=== PATIENT | female | born 1955 | race African-American/Black ===

== ENCOUNTER 2020-04-01 12:25 | Inpatient (IN) | payer MEDICAID, OTHER ==
[~2020-04-01] VITALS: Ht 175.3 cm; Wt 86.9 kg
[2020-04-01 14:12] LABS: White Blood Cell 6.4 10^3/uL (4.4-10.8)
[2020-04-01 14:14] LABS: Hematocrit 46.3 % (36.0-46.0); Mean Corpuscular Hemoglobin 24.3 pg (28.0-32.0); Mean Corpuscular Hgb Conc. 30.2 g/dL (32.0-36.0); Mean Corpuscular Volume 80.6 fL (80.0-100.0); Platelet Count (auto) 165 10^3/uL (140-450); Red Blood Cells 5.75 10^6/uL (4.0-5.20)
[2020-04-01 14:15] LABS: Red Cell Distribution Width 23.5 % (11.8-14.3)
[2020-04-01 14:16] LABS: Band Neutrophils % (manual) 0; Basophils % (manual) 0 (0.0-2.0); Blast Cells 0; Metamyelocytes % 0; Myelocytes % 0; Promyelocytes % 0; Reactive Lymphocytes 0
[2020-04-01 14:28] LABS: Eosinophils % (manual) 1 (0-7); Lymphocytes % (manual) 10 (10.0-50.0); Monocytes % (manual) 14 (0-12)
[2020-04-01 14:31] LABS: Albumin 2.6 g/dL (3.4-5.0); Calcium 8.4 mg/dL (8.5-10.1); Magnesium 2.3 mg/dL (1.6-2.6)
[2020-04-01 14:34] LABS: Lactic Acid w/Reflex 2.8 mmol/L (0.4-2.0)
[2020-04-01 14:38] LABS: Bilirubin, Total 5.2 mg/dL (0.2-1.0); Total Protein 6.8 g/dL (6.4-8.2)
[2020-04-01] MEDS ORDERED: cefTRIAXone 1GM/50ML D5W 50 ML IV ONE (14:45)
[2020-04-01 15:17] LABS: Potassium 2.8 mmol/L (3.5-5.1)
[2020-04-01] MEDS ORDERED: FUROSEMIDE 40 MG/4 ML VIAL IV ONE (16:15)
[2020-04-01] MEDS ORDERED: POTASSIUM EFFERVESENT TAB 25 MEQ PO ONE (17:15)
[2020-04-01] MEDS ORDERED: POTASSIUM CHL 20MEQ/100ML 100 ML IV SCH ×2 (17:45→18:30)
[2020-04-01] MEDS ORDERED: MORPHINE SULF INJ 2 MG/ML SYRINGE 1ML IV PRN (17:45)
[2020-04-01] MEDS ORDERED: NITROGLYCERIN 0.4 MG SL TAB SL PRN (17:45)
[2020-04-01] MEDS ORDERED: POTASSIUM CHLORIDE IV ONE (18:30)
[2020-04-01] MEDS ORDERED: LIDOCAINE 1% IV ONE (18:30)
[2020-04-01] MEDS ORDERED: SODIUM CHL 0.9% IV ONE (18:30)
[2020-04-01] MEDS ORDERED: ACETAMINOPHEN 500 MG TAB PO PRN (19:00)
[2020-04-01] MEDS ORDERED: TEMAZEPAM 15 MG CAP PO PRN (19:00)
[2020-04-01] MEDS ORDERED: ALBUTEROL SULF 2.5 MG/0.5ML(0.5%) NEB SOLN NEB PRN (19:00)
[2020-04-01] MEDS ORDERED: ASPirin 81 mg TAB PO ONE (19:00)
[2020-04-01] MEDS ORDERED: traMADol HCL 50 MG TAB PO PRN (19:00)
[2020-04-01] MEDS ORDERED: PROMETHAZINE HCL 25 MG/ML 1ML IV PRN (19:00)
[2020-04-01] MEDS: levoFLOXacin 500MG 100 ML IV SCH (19:38)
[2020-04-01] MEDS: ATORVASTATIN 20 MG TAB PO SCH (22:00)
[2020-04-01] MEDS: CARVEDILOL 3.125 MG TAB PO SCH (22:00)
[2020-04-01] MEDS: SODIUM CHLOR 0.9% PF (SALINE LOCK) 10ML VIAL/SYR IV SCH (22:00)
[2020-04-01 22:10] VITALS: BP 141/86
[2020-04-01] MEDS: ALBUTEROL SULF 2.5 MG/0.5ML(0.5%) NEB SOLN NEB SCH (22:33)
[2020-04-01] MEDS: IPRATROPIUM BROM 0.5 MG/2.5ML INH SOL NEB SCH (22:34)
[2020-04-01 22:43] VITALS: BP 141/86
[2020-04-01] MEDS ORDERED: FURO40TA4 PO (23:20)
[2020-04-01] MEDS ORDERED: GLIP5TAB12 PO (23:20)
[2020-04-01] MEDS ORDERED: ATOR20TA PO (23:20)
[2020-04-01] MEDS ORDERED: LISI-275 PO (23:20)
[2020-04-01] MEDS ORDERED: METO-158 PO (23:20)
[2020-04-01 23:58] LABS: Urine Bacteria FEW /hpf (None Seen); Urine Blood TRACE /uL (Negative); Urine Hyaline Cast FEW /lpf (0 - 2); Urine Specific Gravity 1.007 (1.001-1.035); Urine WBC <1 /hpf (0 - 5)
[2020-04-02] VITALS (8 sets, daily range): BP systolic 103–141; BP diastolic 56–86
[2020-04-02 00:05] LABS: Alcohol, Urine < 3.0 mg/dL (0-10); Amphetamine Screen, Urine NEGATIVE (NEGATIVE); Barbiturate Scree,Urine NEGATIVE (NEGATIVE); Benzodiazephine Screen, Urine NEGATIVE (NEGATIVE); Cannabinoid Screen, Urine NEGATIVE (NEGATIVE); Cocaine Screen, Urine NEGATIVE (NEGATIVE); Opiate Scree,Urine NEGATIVE (NEGATIVE); Phencyclidine Screen, Urine NEGATIVE (NEGATIVE)
[2020-04-02] MEDS ORDERED: DEXTROSE (50%) 50ML SYRG IV PRN (02:20)
[2020-04-02] MEDS: InsuLIN REG 1unit/0.01ml Soln (100units/ml) SC SCH ×5 (02:20→23:50)
[2020-04-02] MEDS: ACCU-CHEK COMFORT CURVE STRIP VI SCH ×5 (02:26→23:52)
[2020-04-02] MEDS: SODIUM CHLOR 0.9% PF (SALINE LOCK) 10ML VIAL/SYR IV SCH ×3 (05:17→21:14)
[2020-04-02 05:55] LABS: Eosinophils # (auto) 0 10 ^3/uL (0-0.8); Mean Corpuscular Hemoglobin 24.5 pg (28.0-32.0); Monocytes # (auto) 0.4 10 ^3/uL (0-1.3); Red Blood Cells 5.74 10^6/uL (4.0-5.20)
[2020-04-02 05:58] LABS: Basophils # (auto) 0.1 10 ^3/uL (0-0.2); Basophils % (auto) 1.1 % (0.0-2.0); Eosinophils % (auto) 0.1 % (0.0-7.0); Lymphocytes # (auto) 0.8 10 ^3/uL (0.4-5.4); Lymphocytes % (auto) 10.6 % (10.0-50.0); Mean Corpuscular Hgb Conc. 29.9 g/dL (32.0-36.0); Mean Corpuscular Volume 81.8 fL (80.0-100.0); Monocytes % (auto) 5.5 % (0.0-12.0); Neutrophils # (auto) 6.4 10 ^3/uL (1.6-8.6); Neutrophils % (auto) 82.7 % (37.0-80.0); Platelet Count (auto) 143 10^3/uL (140-450); Red Cell Distribution Width 23.8 % (11.8-14.3); White Blood Cell 7.7 10^3/uL (4.4-10.8)
[2020-04-02 06:26] LABS: Potassium 3.1 mmol/L (3.5-5.1)
[2020-04-02 06:40] LABS: Albumin 2.4 g/dL (3.4-5.0); BUN/Creatinine Ratio 29.4; Bilirubin, Total 4.7 mg/dL (0.2-1.0); Calcium 8.4 mg/dL (8.5-10.1); Total Protein 6.4 g/dL (6.4-8.2)
[2020-04-02] MEDS: IPRATROPIUM BROM 0.5 MG/2.5ML INH SOL NEB SCH ×3 (06:49→19:46)
[2020-04-02] MEDS: ALBUTEROL SULF 2.5 MG/0.5ML(0.5%) NEB SOLN NEB SCH ×3 (06:49→19:46)
[2020-04-02 06:51] LABS: Nucleated Red Blood Cells % 7.7 %
[2020-04-02] MEDS ORDERED: ASPirin 81 mg TAB PO SCH (10:00)
[2020-04-02] MEDS ORDERED: ENOXAPARIN SOD 40 MG/0.4 ML SYRINGE SC SCH (10:00)
[2020-04-02] MEDS ORDERED: ENALAPRIL MALEATE 2.5 MG TAB PO SCH (10:00)
[2020-04-02] MEDS ORDERED: POTASSIUM CHL 20 Meq TABLET PO SCH (10:00)
[2020-04-02] MEDS ORDERED: NITROGLYCERIN 0.2MG/HR TOPICAL PATCH TD SCH (10:00)
[2020-04-02] MEDS: FUROSEMIDE 40 MG/4 ML VIAL IV SCH (10:14)
[2020-04-02] MEDS: levoFLOXacin 500MG 100 ML IV SCH (10:15)
[2020-04-02] MEDS: CARVEDILOL 3.125 MG TAB PO SCH ×2 (10:19→21:14)
[2020-04-02] MEDS: ATORVASTATIN 20 MG TAB PO SCH (21:14)
[2020-04-03] VITALS (45 sets, daily range): BP systolic 88–174; BP diastolic 48–80
[2020-04-03] MEDS: IPRATROPIUM BROM 0.5 MG/2.5ML INH SOL NEB SCH ×4 (00:01→18:38)
[2020-04-03] MEDS: InsuLIN REG 1unit/0.01ml Soln (100units/ml) SC SCH ×4 (05:43→23:49)
[2020-04-03] MEDS: SODIUM CHLOR 0.9% PF (SALINE LOCK) 10ML VIAL/SYR IV SCH ×3 (05:45→22:09)
[2020-04-03] MEDS: ACCU-CHEK COMFORT CURVE STRIP VI SCH ×4 (05:45→23:49)
[2020-04-03 06:23] LABS: Mean Corpuscular Hgb Conc. 30.1 g/dL (32.0-36.0)
[2020-04-03 06:25] LABS: Hematocrit 43.3 % (36.0-46.0); Mean Corpuscular Hemoglobin 24.7 pg (28.0-32.0); Platelet Count (auto) 122 10^3/uL (140-450); Red Blood Cells 5.28 10^6/uL (4.0-5.20); White Blood Cell 6.4 10^3/uL (4.4-10.8)
[2020-04-03] MEDS: ALBUTEROL SULF 2.5 MG/0.5ML(0.5%) NEB SOLN NEB SCH ×4 (06:44→18:38)
[2020-04-03 06:46] LABS: INR 1.48 (0.9-1.15); Partial Thromboplastin Time 30.4 sec (23.64-32.05)
[2020-04-03 06:51] LABS: Red Cell Distribution Width 23.5 % (11.8-14.3)
[2020-04-03 06:53] LABS: Band Neutrophils % (manual) 0; Basophils % (manual) 0 (0.0-2.0); Blast Cells 0; Metamyelocytes % 0; Myelocytes % 0; Promyelocytes % 0; Reactive Lymphocytes 0
[2020-04-03 07:02] LABS: Albumin 2.2 g/dL (3.4-5.0); BUN/Creatinine Ratio 30.7; Bilirubin, Total 3.2 mg/dL (0.2-1.0); Calcium 8.2 mg/dL (8.5-10.1); Total Protein 5.8 g/dL (6.4-8.2)
[2020-04-03 07:21] LABS: Eosinophils % (manual) 1 (0-7); Lymphocytes % (manual) 12 (10.0-50.0); Monocytes % (manual) 2 (0-12)
[2020-04-03] MEDS ORDERED: ADENOSINE 87 MG in GIVE UN-DILUTED 0 ML IV STA (08:12)
[2020-04-03] MEDS ORDERED: POTASSIUM EFFERVESENT TAB 25 MEQ PO ONE (09:00)
[2020-04-03] MEDS: FUROSEMIDE 40 MG/4 ML VIAL IV SCH (10:00)
[2020-04-03] MEDS: levoFLOXacin 500MG 100 ML IV SCH (10:00)
[2020-04-03] MEDS ORDERED: MIDAZOLAM DRIP 50 mg/50mL 50 ML IV ONE (10:13)
[2020-04-03] MEDS: MIDAZOLAM DRIP 50 mg/50mL 50 ML IV SCH ×4 (10:17→23:30)
[2020-04-03] MEDS ORDERED: PHENYLEPHRINE IV 250 ML IV ONE (10:22)
[2020-04-03] MEDS ORDERED: AMIODARONE 450mg/250ml AE 250 ML IV SCH ×2 (10:46→16:46)
[2020-04-03] MEDS ORDERED: cefTRIAXone 1GM/50ML D5W 50 ML IV ONE (11:00)
[2020-04-03] MEDS ORDERED: EPINEPHrine HCL 1 MG/10 ML SYRG IV ONE ×2 (11:00→15:52)
[2020-04-03] MEDS ORDERED: AMIODARONE HCL (50 MG/ ML) 3 ML VIAL IV PRN (11:00)
[2020-04-03] MEDS: PHENYLEPHRINE IV 250 ML IV SCH ×2 (11:16→18:46)
[2020-04-03] MEDS ORDERED: CLINDAMYCIN 900MG IV 50 ML IV ONE ×2 (11:30→16:30)
[2020-04-03 13:11] LABS: Basophils # (auto) 0 10 ^3/uL (0-0.2); Eosinophils # (auto) 0 10 ^3/uL (0-0.8); Eosinophils % (auto) 0.4 % (0.0-7.0); Lymphocytes # (auto) 0.7 10 ^3/uL (0.4-5.4); Monocytes # (auto) 0.3 10 ^3/uL (0-1.3)
[2020-04-03 13:13] LABS: Basophils % (auto) 0.3 % (0.0-2.0); Hematocrit 45.8 % (36.0-46.0); Hemoglobin 13.7 g/dL (12.2-16.2); Lymphocytes % (auto) 9.7 % (10.0-50.0); Mean Corpuscular Hemoglobin 24.3 pg (28.0-32.0); Mean Corpuscular Volume 81.2 fL (80.0-100.0); Monocytes % (auto) 3.9 % (0.0-12.0); Neutrophils # (auto) 6.1 10 ^3/uL (1.6-8.6); Neutrophils % (auto) 85.7 % (37.0-80.0); Platelet Count (auto) 151 10^3/uL (140-450); Red Blood Cells 5.64 10^6/uL (4.0-5.20); White Blood Cell 7.2 10^3/uL (4.4-10.8)
[2020-04-03 13:19] LABS: Nucleated Red Blood Cells % 4.3 %; Red Cell Distribution Width 24.1 % (11.8-14.3)
[2020-04-03 13:25] LABS: INR 1.44 (0.9-1.15); Partial Thromboplastin Time 27.6 sec (23.64-32.05)
[2020-04-03 13:30] LABS: Magnesium 2.2 mg/dL (1.6-2.6)
[2020-04-03 13:49] LABS: BUN/Creatinine Ratio 28.5; Calcium 8.8 mg/dL (8.5-10.1); Potassium 3.4 mmol/L (3.5-5.1)
[2020-04-03] MEDS ORDERED: POTASSIUM EFFERVESENT TAB 25 MEQ GT ONE (15:30)
[2020-04-03] MEDS ORDERED: CALCIUM CHLOR(10%) 100MG/ML 10ML SYRINGE IV ONE (15:52)
[2020-04-03] MEDS ORDERED: AMIODARONE HCL (50 MG/ ML) 3 ML VIAL IV ONE (15:52)
[2020-04-03] MEDS ORDERED: SODIUM BICARBONATE 8.4% INJ 50ML SYRINGE IV ONE (15:52)
[2020-04-03] MEDS: ATORVASTATIN 20 MG TAB PO SCH (22:00)
[2020-04-04] VITALS (101 sets, daily range): BP systolic 117–163; BP diastolic 58–89
[2020-04-04] MEDS: ALBUTEROL SULF 2.5 MG/0.5ML(0.5%) NEB SOLN NEB SCH ×4 (00:17→18:32)
[2020-04-04] MEDS: IPRATROPIUM BROM 0.5 MG/2.5ML INH SOL NEB SCH ×4 (00:17→18:32)
[2020-04-04] MEDS: fentaNYL Drip 2500mCg/250mlNS 250 ML IV SCH ×2 (03:55→20:00)
[2020-04-04] MEDS: MIDAZOLAM DRIP 50 mg/50mL 50 ML IV SCH ×3 (03:56→11:59)
[2020-04-04 04:05] LABS: Basophils # (auto) 0.1 10 ^3/uL (0-0.2); Eosinophils # (auto) 0 10 ^3/uL (0-0.8); Lymphocytes % (auto) 14.7 % (10.0-50.0); Neutrophils # (auto) 5.4 10 ^3/uL (1.6-8.6); White Blood Cell 6.8 10^3/uL (4.4-10.8)
[2020-04-04 04:09] LABS: Basophils % (auto) 0.9 % (0.0-2.0); Eosinophils % (auto) 0.4 % (0.0-7.0); Hematocrit 42.3 % (36.0-46.0); Mean Corpuscular Hemoglobin 24.5 pg (28.0-32.0); Mean Corpuscular Hgb Conc. 30.7 g/dL (32.0-36.0); Mean Corpuscular Volume 79.8 fL (80.0-100.0); Monocytes # (auto) 0.4 10 ^3/uL (0-1.3); Monocytes % (auto) 5.2 % (0.0-12.0); Neutrophils % (auto) 78.8 % (37.0-80.0); Platelet Count (auto) 119 10^3/uL (140-450)
[2020-04-04 04:20] LABS: Nucleated Red Blood Cells % 3.4 %
[2020-04-04 04:21] LABS: Red Cell Distribution Width 23.3 % (11.8-14.3)
[2020-04-04 04:24] LABS: Albumin 1.9 g/dL (3.4-5.0); Calcium 8.5 mg/dL (8.5-10.1)
[2020-04-04 04:27] LABS: BUN/Creatinine Ratio 29.6; Bilirubin, Total 3.4 mg/dL (0.2-1.0); Total Protein 5.1 g/dL (6.4-8.2)
[2020-04-04] MEDS: SODIUM CHLOR 0.9% PF (SALINE LOCK) 10ML VIAL/SYR IV SCH ×3 (06:00→22:00)
[2020-04-04] MEDS: InsuLIN REG 1unit/0.01ml Soln (100units/ml) SC SCH ×3 (06:00→18:00)
[2020-04-04] MEDS: ACCU-CHEK COMFORT CURVE STRIP VI SCH ×3 (06:00→18:06)
[2020-04-04] MEDS ORDERED: POTASSIUM CHLORIDE 60 MEQ, LIDOCAINE 1% (LOCAL ANESTH.) 6 ML in SODIUM CHL 0.9% 500 ML IV ONE (08:00)
[2020-04-04] MEDS ORDERED: POTASSIUM EFFERVESENT TAB 25 MEQ PO ONE (08:00)
[2020-04-04] MEDS ORDERED: VANCOMYCIN PER PHARMACY 0 MG IV SCH (09:30)
[2020-04-04] MEDS: levoFLOXacin 500MG 100 ML IV SCH (09:54)
[2020-04-04] MEDS: FUROSEMIDE 40 MG/4 ML VIAL IV SCH (09:54)
[2020-04-04] MEDS ORDERED: VANCOMYCIN 1GM/250ML 250 ML IV SCH ×2 (10:00→12:30)
[2020-04-04] MEDS ORDERED: ALTEPLASE 2MG CATHFLO 10 MG in STERILE WATER 30 ML IV ONE (10:15)
[2020-04-04] MEDS ORDERED: POTASSIUM EFFERVESENT TAB 25 MEQ GT ONE (10:30)
[2020-04-04] MEDS: ATORVASTATIN 20 MG TAB PO SCH (22:52)
[2020-04-05] VITALS (81 sets, daily range): BP systolic 117–190; BP diastolic 57–104
[2020-04-05] MEDS: IPRATROPIUM BROM 0.5 MG/2.5ML INH SOL NEB SCH ×4 (00:20→18:26)
[2020-04-05] MEDS: ALBUTEROL SULF 2.5 MG/0.5ML(0.5%) NEB SOLN NEB SCH ×4 (00:20→18:26)
[2020-04-05] MEDS: InsuLIN REG 1unit/0.01ml Soln (100units/ml) SC SCH ×5 (00:30→23:48)
[2020-04-05] MEDS: ACCU-CHEK COMFORT CURVE STRIP VI SCH ×5 (00:30→23:48)
[2020-04-05] MEDS: SODIUM CHLOR 0.9% PF (SALINE LOCK) 10ML VIAL/SYR IV SCH ×3 (05:38→21:33)
[2020-04-05 05:57] LABS: Basophils # (auto) 0.1 10 ^3/uL (0-0.2); Basophils % (auto) 1.2 % (0.0-2.0); Eosinophils # (auto) 0.1 10 ^3/uL (0-0.8); Lymphocytes # (auto) 1.3 10 ^3/uL (0.4-5.4); Platelet Count (auto) 129 10^3/uL (140-450); White Blood Cell 6.8 10^3/uL (4.4-10.8)
[2020-04-05 06:14] LABS: Hematocrit 42.9 % (36.0-46.0); Hemoglobin 13.2 g/dL (12.2-16.2); Lymphocytes % (auto) 19.6 % (10.0-50.0); Mean Corpuscular Hemoglobin 24.4 pg (28.0-32.0); Mean Corpuscular Hgb Conc. 30.7 g/dL (32.0-36.0); Mean Corpuscular Volume 79.4 fL (80.0-100.0); Monocytes # (auto) 0.4 10 ^3/uL (0-1.3); Monocytes % (auto) 5.5 % (0.0-12.0); Neutrophils # (auto) 4.9 10 ^3/uL (1.6-8.6); Neutrophils % (auto) 72.7 % (37.0-80.0); Nucleated Red Blood Cells % 2.1 %
[2020-04-05 06:21] LABS: Albumin 1.9 g/dL (3.4-5.0); BUN/Creatinine Ratio 28.7; Calcium 8.5 mg/dL (8.5-10.1); Potassium 4.2 mmol/L (3.5-5.1)
[2020-04-05 06:24] LABS: Bilirubin, Total 3.9 mg/dL (0.2-1.0); Total Protein 5.5 g/dL (6.4-8.2)
[2020-04-05 06:27] LABS: Red Cell Distribution Width 23.7 % (11.8-14.3)
[2020-04-05] MEDS ORDERED: VANCOMYCIN 1GM/250ML 250 ML IV SCH (10:00)
[2020-04-05] MEDS: FUROSEMIDE 40 MG/4 ML VIAL IV SCH (10:26)
[2020-04-05] MEDS: POTASSIUM EFFERVESENT TAB 25 MEQ GT SCH (10:26)
[2020-04-05] MEDS: levoFLOXacin 500MG 100 ML IV SCH (10:26)
[2020-04-05] MEDS: ASPirin 81 mg TAB PO SCH (10:26)
[2020-04-05] MEDS: DexMEDEtomidine 400 MCG in D5W 5% 96 ML IV SCH (10:28)
[2020-04-05] MEDS: fentaNYL Drip 2500mCg/250mlNS 250 ML IV SCH (12:14)
[2020-04-05] MEDS ORDERED: LABETALOL HCL 5 MG/ML 4ML SYRINGE IV ONE (13:47)
[2020-04-05] MEDS ORDERED: amLODIPine BESYLATE 5 MG TAB PO ONE (16:45)
[2020-04-05] MEDS ORDERED: METOPROLOL TARTRATE 25 MG TAB PO ONE (16:45)
[2020-04-05] MEDS: LABETALOL HCL 5 MG/ML 4ML SYRINGE IV PRN (18:01)
[2020-04-05] MEDS: ATORVASTATIN 20 MG TAB PO SCH (21:36)
[2020-04-05] MEDS: METOPROLOL TARTRATE 25 MG TAB PO SCH (21:37)
[2020-04-06] VITALS (48 sets, daily range): BP systolic 103–191; BP diastolic 34–100
[2020-04-06] MEDS: ALBUTEROL SULF 2.5 MG/0.5ML(0.5%) NEB SOLN NEB SCH ×4 (00:27→18:27)
[2020-04-06] MEDS: IPRATROPIUM BROM 0.5 MG/2.5ML INH SOL NEB SCH ×4 (00:27→18:27)
[2020-04-06 05:14] LABS: Basophils # (auto) 0.1 10 ^3/uL (0-0.2); Eosinophils # (auto) 0.1 10 ^3/uL (0-0.8); Hemoglobin 13.6 g/dL (12.2-16.2); Lymphocytes # (auto) 1.1 10 ^3/uL (0.4-5.4); Nucleated Red Blood Cells % 1.9 %; White Blood Cell 6.7 10^3/uL (4.4-10.8)
[2020-04-06 05:16] LABS: Basophils % (auto) 1.1 % (0.0-2.0); Eosinophils % (auto) 1.5 % (0.0-7.0); Hematocrit 43.2 % (36.0-46.0); Lymphocytes % (auto) 16.7 % (10.0-50.0); Mean Corpuscular Hgb Conc. 31.4 g/dL (32.0-36.0); Mean Corpuscular Volume 79.6 fL (80.0-100.0); Monocytes # (auto) 0.4 10 ^3/uL (0-1.3); Monocytes % (auto) 5.6 % (0.0-12.0); Neutrophils % (auto) 75.1 % (37.0-80.0); Platelet Count (auto) 105 10^3/uL (140-450); Red Blood Cells 5.43 10^6/uL (4.0-5.20)
[2020-04-06 05:34] LABS: Potassium 3.5 mmol/L (3.5-5.1)
[2020-04-06 05:39] LABS: Red Cell Distribution Width 24.3 % (11.8-14.3)
[2020-04-06 05:42] LABS: BUN/Creatinine Ratio 29.3; Calcium 8.6 mg/dL (8.5-10.1)
[2020-04-06] MEDS: DexMEDEtomidine 400 MCG in D5W 5% 96 ML IV SCH (05:47)
[2020-04-06] MEDS: InsuLIN REG 1unit/0.01ml Soln (100units/ml) SC SCH ×3 (06:00→19:08)
[2020-04-06] MEDS: ACCU-CHEK COMFORT CURVE STRIP VI SCH ×3 (06:10→19:08)
[2020-04-06] MEDS: SODIUM CHLOR 0.9% PF (SALINE LOCK) 10ML VIAL/SYR IV SCH ×3 (06:10→21:52)
[2020-04-06] MEDS: LABETALOL HCL 5 MG/ML 4ML SYRINGE IV PRN ×2 (06:34→12:45)
[2020-04-06] MEDS: levoFLOXacin 500MG 100 ML IV SCH (10:01)
[2020-04-06] MEDS: FUROSEMIDE 40 MG/4 ML VIAL IV SCH (10:01)
[2020-04-06] MEDS: ASPirin 81 mg TAB PO SCH (10:02)
[2020-04-06] MEDS: METOPROLOL TARTRATE 25 MG TAB PO SCH ×2 (10:03→21:52)
[2020-04-06] MEDS: hydrALAZINE HCL 25 MG TAB PO SCH ×3 (12:00→19:11)
[2020-04-06] MEDS ORDERED: DexAMETHasone SOD PHOS 4 MG/1ML SDV INJ IV ONE (12:45)
[2020-04-06] MEDS: POTASSIUM EFFERVESENT TAB 25 MEQ GT SCH (15:53)
[2020-04-06] MEDS: amLODIPine BESYLATE 5 MG TAB PO SCH (15:55)
[2020-04-06] MEDS: ATORVASTATIN 20 MG TAB PO SCH (21:51)
[2020-04-07] VITALS (51 sets, daily range): BP systolic 94–152; BP diastolic 48–100
[2020-04-07] MEDS: ALBUTEROL SULF 2.5 MG/0.5ML(0.5%) NEB SOLN NEB SCH ×4 (00:13→18:09)
[2020-04-07] MEDS: IPRATROPIUM BROM 0.5 MG/2.5ML INH SOL NEB SCH ×4 (00:13→18:09)
[2020-04-07] MEDS: hydrALAZINE HCL 25 MG TAB PO SCH ×4 (00:27→22:00)
[2020-04-07] MEDS: ACCU-CHEK COMFORT CURVE STRIP VI SCH ×5 (00:28→23:58)
[2020-04-07] MEDS: InsuLIN REG 1unit/0.01ml Soln (100units/ml) SC SCH ×5 (00:32→23:57)
[2020-04-07 04:21] LABS: Basophils # (auto) 0 10 ^3/uL (0-0.2); Eosinophils # (auto) 0 10 ^3/uL (0-0.8); Hemoglobin 13.6 g/dL (12.2-16.2)
[2020-04-07 04:28] LABS: Basophils % (auto) 0.6 % (0.0-2.0); Hematocrit 43.5 % (36.0-46.0); Lymphocytes # (auto) 1.6 10 ^3/uL (0.4-5.4); Lymphocytes % (auto) 20.6 % (10.0-50.0); Mean Corpuscular Hgb Conc. 31.3 g/dL (32.0-36.0); Monocytes # (auto) 0.3 10 ^3/uL (0-1.3); Neutrophils # (auto) 5.7 10 ^3/uL (1.6-8.6); Neutrophils % (auto) 74.8 % (37.0-80.0); Nucleated Red Blood Cells % 1.7 %; Platelet Count (auto) 100 10^3/uL (140-450); Red Blood Cells 5.43 10^6/uL (4.0-5.20); White Blood Cell 7.7 10^3/uL (4.4-10.8)
[2020-04-07 04:37] LABS: Red Cell Distribution Width 24.8 % (11.8-14.3)
[2020-04-07 04:43] LABS: Calcium 8.8 mg/dL (8.5-10.1); Potassium 3.7 mmol/L (3.5-5.1)
[2020-04-07 04:44] LABS: BUN/Creatinine Ratio 25.2
[2020-04-07] MEDS ORDERED: FUROSEMIDE 20 MG/2 ML VIAL IV ONE (05:45)
[2020-04-07] MEDS: SODIUM CHLOR 0.9% PF (SALINE LOCK) 10ML VIAL/SYR IV SCH ×3 (05:59→23:56)
[2020-04-07] MEDS: amLODIPine BESYLATE 5 MG TAB PO SCH ×2 (09:23→09:26)
[2020-04-07] MEDS: ASPirin 81 mg TAB PO SCH (09:24)
[2020-04-07] MEDS: METOPROLOL TARTRATE 25 MG TAB PO SCH ×2 (09:24→23:57)
[2020-04-07] MEDS: levoFLOXacin 500MG 100 ML IV SCH (09:25)
[2020-04-07] MEDS ORDERED: POTASSIUM CHL 20 Meq TABLET PO ONE (10:15)
[2020-04-07] MEDS ORDERED: acetaZOLAMIDE SODIUM 500 MG VL IV ONE (11:45)
[2020-04-07] MEDS ORDERED: LABETALOL HCL 5 MG/ML 4ML SYRINGE IV PRN (14:45)
[2020-04-07] MEDS: FUROSEMIDE 40 MG/4 ML VIAL IV SCH (18:30)
[2020-04-07] MEDS: ATORVASTATIN 20 MG TAB PO SCH (23:56)
[2020-04-08 04:35] VITALS: BP 114/58
[2020-04-08 05:00] VITALS: BP 107/52
[2020-04-08] MEDS: FUROSEMIDE 40 MG/4 ML VIAL IV SCH (05:26)
[2020-04-08] MEDS: SODIUM CHLOR 0.9% PF (SALINE LOCK) 10ML VIAL/SYR IV SCH ×3 (05:40→22:27)
[2020-04-08] MEDS: ACCU-CHEK COMFORT CURVE STRIP VI SCH ×3 (05:41→17:30)
[2020-04-08] MEDS: InsuLIN REG 1unit/0.01ml Soln (100units/ml) SC SCH ×3 (05:41→17:30)
[2020-04-08 06:01] LABS: Hematocrit 42.7 % (36.0-46.0); Mean Corpuscular Hemoglobin 24.9 pg (28.0-32.0); Mean Corpuscular Hgb Conc. 30.5 g/dL (32.0-36.0); Mean Corpuscular Volume 81.5 fL (80.0-100.0); Platelet Count (auto) 107 10^3/uL (140-450); Red Blood Cells 5.24 10^6/uL (4.0-5.20); White Blood Cell 7.3 10^3/uL (4.4-10.8)
[2020-04-08 06:03] LABS: Red Cell Distribution Width 26.3 % (11.8-14.3)
[2020-04-08 06:04] LABS: Band Neutrophils % (manual) 0; Basophils % (manual) 0 (0.0-2.0); Blast Cells 0; Metamyelocytes % 0; Myelocytes % 0; Promyelocytes % 0; Reactive Lymphocytes 0
[2020-04-08 06:28] LABS: Calcium 8.3 mg/dL (8.5-10.1); Potassium 3.6 mmol/L (3.5-5.1)
[2020-04-08 06:30] LABS: BUN/Creatinine Ratio 21.6
[2020-04-08 06:51] LABS: Eosinophils % (manual) 1 (0-7); Lymphocytes % (manual) 17 (10.0-50.0); Monocytes % (manual) 3 (0-12)
[2020-04-08] MEDS: ALBUTEROL SULF 2.5 MG/0.5ML(0.5%) NEB SOLN NEB SCH ×4 (06:54→18:59)
[2020-04-08] MEDS: IPRATROPIUM BROM 0.5 MG/2.5ML INH SOL NEB SCH ×4 (06:55→18:59)
[2020-04-08 09:00] VITALS: BP 120/64
[2020-04-08] MEDS: levoFLOXacin 500MG 100 ML IV SCH (09:32)
[2020-04-08] MEDS: ASPirin 81 mg TAB PO SCH (09:33)
[2020-04-08] MEDS: hydrALAZINE HCL 25 MG TAB PO SCH ×2 (09:34→22:00)
[2020-04-08] MEDS: METOPROLOL TARTRATE 25 MG TAB PO SCH ×2 (09:35→23:00)
[2020-04-08] MEDS ORDERED: amLODIPine BESYLATE 5 MG TAB PO SCH (10:00)
[2020-04-08] MEDS ORDERED: POTASSIUM CHL 20 Meq TABLET PO SCH (10:00)
[2020-04-08 13:00] VITALS: BP 99/58
[2020-04-08 17:00] VITALS: BP 104/54
[2020-04-08 22:00] VITALS: BP 104/59
[2020-04-08] MEDS: ATORVASTATIN 20 MG TAB PO SCH (22:27)
[2020-04-09] MEDS: IPRATROPIUM BROM 0.5 MG/2.5ML INH SOL NEB SCH ×4 (00:27→18:48)
[2020-04-09] MEDS: ALBUTEROL SULF 2.5 MG/0.5ML(0.5%) NEB SOLN NEB SCH ×4 (00:27→18:48)
[2020-04-09 05:00] VITALS: BP 103/59
[2020-04-09 05:53] LABS: Urine Amorphous Crystal FEW /hpf (None Seen); Urine Bacteria FEW /hpf (None Seen); Urine Blood 2+ /uL (Negative); Urine Hyaline Cast FEW /lpf (0 - 2); Urine Mucus FEW (None Seen); Urine Specific Gravity 1.011 (1.001-1.035); Urine WBC 10 /hpf (0 - 5)
[2020-04-09] MEDS: ACCU-CHEK COMFORT CURVE STRIP VI SCH ×4 (06:00→18:08)
[2020-04-09] MEDS: InsuLIN REG 1unit/0.01ml Soln (100units/ml) SC SCH ×4 (06:00→18:00)
[2020-04-09 06:07] LABS: Basophils # (auto) 0 10 ^3/uL (0-0.2); Basophils % (auto) 0.7 % (0.0-2.0); Eosinophils # (auto) 0.1 10 ^3/uL (0-0.8); Nucleated Red Blood Cells % 0.4 %
[2020-04-09] MEDS: SODIUM CHLOR 0.9% PF (SALINE LOCK) 10ML VIAL/SYR IV SCH ×3 (06:13→23:10)
[2020-04-09 06:18] LABS: INR 1.32 (0.9-1.15)
[2020-04-09 06:21] LABS: Potassium 4.1 mmol/L (3.5-5.1)
[2020-04-09 06:22] LABS: Eosinophils % (auto) 0.9 % (0.0-7.0); Hematocrit 39.9 % (36.0-46.0); Hemoglobin 12.4 g/dL (12.2-16.2); Lymphocytes % (auto) 48.5 % (10.0-50.0); Mean Corpuscular Hemoglobin 25.2 pg (28.0-32.0); Mean Corpuscular Volume 81.4 fL (80.0-100.0); Monocytes # (auto) 0.4 10 ^3/uL (0-1.3); Monocytes % (auto) 6.6 % (0.0-12.0); Neutrophils # (auto) 2.7 10 ^3/uL (1.6-8.6); Neutrophils % (auto) 43.3 % (37.0-80.0); Platelet Count (auto) 113 10^3/uL (140-450); White Blood Cell 6.3 10^3/uL (4.4-10.8)
[2020-04-09 06:28] LABS: BUN/Creatinine Ratio 22.9
[2020-04-09 06:59] LABS: Red Cell Distribution Width 25.5 % (11.8-14.3)
[2020-04-09] MEDS ORDERED: LIDOCAINE 2%HCL (LOCAL ANESTH.) INJ 20ML MDV ONE (08:52)
[2020-04-09] MEDS ORDERED: IODIXANOL 320MG/ML 100ML BTL IV ONE ×3 (08:52→10:31)
[2020-04-09] MEDS ORDERED: HEPARIN SODIUM (PORCINE) 5000 UNITS/ML 1ML VIAL ONE (08:58)
[2020-04-09] MEDS ORDERED: VERAPAMIL 2.5MG/ML INJ 2ML VIAL IV ONE ×2 (08:58→08:59)
[2020-04-09] MEDS ORDERED: ANGIOMAX 250 MG VIAL IV ONE (08:58)
[2020-04-09] MEDS ORDERED: SODIUM CHL 0.9% 50 ML ONE (08:59)
[2020-04-09] MEDS ORDERED: MIDAZOLAM HCL 1MG/1ML-2 ML VIAL ONE (08:59)
[2020-04-09] MEDS ORDERED: fentaNYL CITRATE 100 MCG/2 ML VL ONE (08:59)
[2020-04-09] MEDS: ASPirin 81 mg TAB PO SCH (10:00)
[2020-04-09] MEDS: METOPROLOL TARTRATE 25 MG TAB PO SCH ×2 (10:00→23:09)
[2020-04-09] MEDS ORDERED: TICAGRELOR 90 MG TAB ONE (10:28)
[2020-04-09] MEDS ORDERED: ASPirin 81 mg TAB ONE (10:55)
[2020-04-09 13:00] VITALS: BP 93/50
[2020-04-09] MEDS: levoFLOXacin 500MG 100 ML IV SCH (13:01)
[2020-04-09] MEDS ORDERED: SODIUM CHLORIDE 0.9% 1,000 ML IV ONE (14:30)
[2020-04-09] MEDS ORDERED: AMOXICILLIN/CLAVUL 875 MG TAB PO ONE (14:30)
[2020-04-09 17:00] VITALS: BP 126/57
[2020-04-09 22:00] VITALS: BP 134/64
[2020-04-09] MEDS: ATORVASTATIN 20 MG TAB PO SCH (23:07)
[2020-04-09] MEDS: AMOXICILLIN/CLAVUL 875 MG TAB PO SCH (23:07)
[2020-04-09] MEDS: TICAGRELOR 90 MG TAB PO SCH (23:08)
[2020-04-09] MEDS: hydrALAZINE HCL 25 MG TAB PO SCH (23:08)
[2020-04-10] MEDS: ALBUTEROL SULF 2.5 MG/0.5ML(0.5%) NEB SOLN NEB SCH ×4 (00:38→19:44)
[2020-04-10] MEDS: IPRATROPIUM BROM 0.5 MG/2.5ML INH SOL NEB SCH ×4 (00:38→19:44)
[2020-04-10 05:00] VITALS: BP 99/53
[2020-04-10 05:38] LABS: Basophils # (auto) 0 10 ^3/uL (0-0.2); Eosinophils # (auto) 0.1 10 ^3/uL (0-0.8); Hemoglobin 12.1 g/dL (12.2-16.2); Neutrophils % (auto) 48.9 % (37.0-80.0); Nucleated Red Blood Cells % 0.2 %
[2020-04-10 05:40] LABS: Basophils % (auto) 0.6 % (0.0-2.0); Eosinophils % (auto) 1.3 % (0.0-7.0); Hematocrit 38.9 % (36.0-46.0); Lymphocytes # (auto) 2.4 10 ^3/uL (0.4-5.4); Lymphocytes % (auto) 39.9 % (10.0-50.0); Mean Corpuscular Hemoglobin 25.3 pg (28.0-32.0); Mean Corpuscular Volume 81.4 fL (80.0-100.0); Monocytes # (auto) 0.6 10 ^3/uL (0-1.3); Monocytes % (auto) 9.3 % (0.0-12.0); Neutrophils # (auto) 2.9 10 ^3/uL (1.6-8.6); Platelet Count (auto) 121 10^3/uL (140-450); Red Blood Cells 4.78 10^6/uL (4.0-5.20)
[2020-04-10] MEDS: InsuLIN REG 1unit/0.01ml Soln (100units/ml) SC SCH ×4 (06:00→18:00)
[2020-04-10] MEDS: SODIUM CHLOR 0.9% PF (SALINE LOCK) 10ML VIAL/SYR IV SCH ×2 (06:00→14:04)
[2020-04-10] MEDS: ACCU-CHEK COMFORT CURVE STRIP VI SCH ×4 (06:00→18:08)
[2020-04-10 06:01] LABS: Calcium 8.2 mg/dL (8.5-10.1); Potassium 3.5 mmol/L (3.5-5.1)
[2020-04-10 09:00] VITALS: BP 131/80
[2020-04-10] MEDS: AMOXICILLIN/CLAVUL 875 MG TAB PO SCH ×2 (09:05→21:53)
[2020-04-10] MEDS: hydrALAZINE HCL 25 MG TAB PO SCH ×2 (09:05→21:54)
[2020-04-10] MEDS: TICAGRELOR 90 MG TAB PO SCH ×2 (09:05→21:54)
[2020-04-10] MEDS: ASPirin 81 mg TAB PO SCH (09:06)
[2020-04-10] MEDS: METOPROLOL TARTRATE 25 MG TAB PO SCH ×2 (09:06→21:54)
[2020-04-10 13:00] VITALS: BP 126/88
[2020-04-10 17:00] VITALS: BP 110/54
[2020-04-10 19:45] VITALS: BP 127/54
[2020-04-10] MEDS: ATORVASTATIN 20 MG TAB PO SCH (21:55)
[2020-04-10 22:00] VITALS: BP 127/54
[2020-04-11] MEDS: IPRATROPIUM BROM 0.5 MG/2.5ML INH SOL NEB SCH ×4 (00:01→19:00)
[2020-04-11] MEDS: ALBUTEROL SULF 2.5 MG/0.5ML(0.5%) NEB SOLN NEB SCH ×4 (00:01→19:00)
[2020-04-11] MEDS: SODIUM CHLOR 0.9% PF (SALINE LOCK) 10ML VIAL/SYR IV SCH ×3 (00:45→16:11)
[2020-04-11 05:11] VITALS: BP 117/51
[2020-04-11] MEDS: ACCU-CHEK COMFORT CURVE STRIP VI SCH ×4 (06:00→18:00)
[2020-04-11] MEDS: InsuLIN REG 1unit/0.01ml Soln (100units/ml) SC SCH ×4 (06:00→18:00)
[2020-04-11 08:00] VITALS: BP 150/72
[2020-04-11 09:15] LABS: BUN/Creatinine Ratio 15.8; Calcium 7.8 mg/dL (8.5-10.1); Potassium 3.4 mmol/L (3.5-5.1)
[2020-04-11] MEDS: AMOXICILLIN/CLAVUL 875 MG TAB PO SCH (09:45)
[2020-04-11] MEDS: TICAGRELOR 90 MG TAB PO SCH (09:46)
[2020-04-11] MEDS: METOPROLOL TARTRATE 25 MG TAB PO SCH (09:46)
[2020-04-11] MEDS: hydrALAZINE HCL 25 MG TAB PO SCH (09:46)
[2020-04-11] MEDS: ASPirin 81 mg TAB PO SCH (09:46)
[2020-04-11 12:00] VITALS: BP 104/56
[2020-04-11] MEDS ORDERED: POTASSIUM CHL 20 Meq TABLET PO ONE (14:00)
[2020-04-11] MEDS ORDERED: KETOROLAC TROMETH 30 MG/ML 1ML VIAL IV ONE (15:15)
[2020-04-11 17:00] VITALS: BP 123/51
[2020-04-11 18:31] VITALS: BP 123/57
== END 2020-04-11 19:45 | disposition home or self-care (01) | DRG 175 ==
LOC: ER 12:25 → TELE 12:26 → TELE-WESTW 20:49 → ICU WEST 04-03 12:45 → TELE-WESTW 04-07 21:52
PROVIDERS: ADMIT Internal Medicine; ATTEND Internal Medicine
PROC: 5A1945Z Respiratory Ventilation, 24-96 Consecutive Hours (ICD-10-PCS; principal; 2020-04-03)
PROC: 0BH17EZ Insertion of Endotracheal Airway into Trachea, Via Natural or Artificial Opening (ICD-10-PCS; 2020-04-03)
PROC: 02HV33Z Insertion of Infusion Device into Superior Vena Cava, Percutaneous Approach (ICD-10-PCS; 2020-04-03)
PROC: 027135Z Dilation of Coronary Artery, Two Arteries with Two Drug-eluting Intraluminal Devices, Percutaneous Approach (ICD-10-PCS; 2020-04-09)
PROC: 4A023N7 Measurement of Cardiac Sampling and Pressure, Left Heart, Percutaneous Approach (ICD-10-PCS; 2020-04-09)
PROC: B2111ZZ Fluoroscopy of Multiple Coronary Arteries using Low Osmolar Contrast (ICD-10-PCS; 2020-04-09)
PROC: B2151ZZ Fluoroscopy of Left Heart using Low Osmolar Contrast (ICD-10-PCS; 2020-04-09)
DX: I13.0 Hypertensive heart and chronic kidney disease with heart failure and stage 1 through stage 4 chronic kidney disease, or unspecified chronic kidney disease (principal); J96.01 Acute respiratory failure with hypoxia; I25.10 Atherosclerotic heart disease of native coronary artery without angina pectoris; I46.9 Cardiac arrest, cause unspecified; N17.0 Acute kidney failure with tubular necrosis; Z99.11 Dependence on respirator [ventilator] status; J90 Pleural effusion, not elsewhere classified; I50.43 Acute on chronic combined systolic (congestive) and diastolic (congestive) heart failure; E11.22 Type 2 diabetes mellitus with diabetic chronic kidney disease; N18.4 Chronic kidney disease, stage 4 (severe); K76.1 Chronic passive congestion of liver; E66.01 Morbid (severe) obesity due to excess calories; I08.1 Rheumatic disorders of both mitral and tricuspid valves; I25.82 Chronic total occlusion of coronary artery; I48.91 Unspecified atrial fibrillation; E87.6 Hypokalemia; E78.5 Hyperlipidemia, unspecified; F17.210 Nicotine dependence, cigarettes, uncomplicated; Z95.5 Presence of coronary angioplasty implant and graft; E87.2 Acidosis; Z79.02 Long term (current) use of antithrombotics/antiplatelets; Z79.82 Long term (current) use of aspirin; Z79.899 Other long term (current) drug therapy; Z82.49 Family history of ischemic heart disease and other diseases of the circulatory system; Z83.3 Family history of diabetes mellitus; Z68.35 Body mass index [BMI] 35.0-35.9, adult
CPT/HCPCS: 31500; 36415; 36600; 70450; 71045; 71250; 73030; 76775; 80048; 80053; 80061; 80307; 81001; 82550; 82805; 82962; 83036; 83605; 83735; 83880; 84132; 84443; 84484; 85007; 85025; 85027; 85610; 85652; 85730; 87040; 87070; 87077; 87081; 87086; 87186; 87205; 93005; 93017; 93306; 94002; 94003; 94640; 94762; 97163; 97530; 99152; 99153; C1874; G0378; J0153; J0696; J1100; J1815; J1885; J1956; J2001; J2250; J3490; J7060; Q9967

== ENCOUNTER 2021-02-09 12:57 | Inpatient (IN) | payer OTHER, MEDICAID ==
[~2021-02-09] VITALS: Ht 160 cm; Wt 96.0 kg
[~2021-02-09 12:57] MED LIST: ATOR20TA PO; FURO40TA4 PO; GLIP5TAB12 PO; LISI-275 PO; METO-158 PO
[2021-02-09 14:04] LABS: Basophils # (auto) 0.1 10 ^3/uL (0-0.2); Basophils % (auto) 1.5 % (0.0-2.0); Eosinophils # (auto) 0.2 10 ^3/uL (0-0.8); Eosinophils % (auto) 1.8 % (0.0-7.0); Hematocrit 40.1 % (36.0-46.0); Hemoglobin 12.9 g/dL (12.2-16.2); Lymphocytes # (auto) 1.6 10 ^3/uL (0.4-5.4); Lymphocytes % (auto) 17.1 % (10.0-50.0); Mean Corpuscular Hgb Conc. 32.2 g/dL (32.0-36.0); Mean Corpuscular Volume 93.1 fL (80.0-100.0); Monocytes # (auto) 0.5 10 ^3/uL (0-1.3); Monocytes % (auto) 5.4 % (0.0-12.0); Neutrophils # (auto) 7.1 10 ^3/uL (1.6-8.6); Neutrophils % (auto) 74.2 % (37.0-80.0); Nucleated Red Blood Cells % 1.5 %; Platelet Count (auto) 289 10^3/uL (140-450); Red Blood Cells 4.31 10^6/uL (4.0-5.20); Red Cell Distribution Width 17.1 % (11.8-14.3); White Blood Cell 9.6 10^3/uL (4.4-10.8)
[2021-02-09 14:11] LABS: Chloride 106 mmol/L (98-107); Potassium 4.1 mmol/L (3.5-5.1); Sodium 139 mmol/L (136-145)
[2021-02-09 14:16] LABS: Albumin 3.7 g/dL (3.4-5.0); Anion Gap 5 (5-15); Aspartate Aminotransferase 32 U/L (15-37); BUN/Creatinine Ratio 16.2; Blood Urea Nitrogen 23 mg/dL (7-18); Calcium 8.2 mg/dL (8.5-10.1); Carbon Dioxide 28 mmol/L (21-32); GFR African American 48 mL/min; GFR Non-African American 39 mL/min; Glucose 122 mg/dL (74-106)
[2021-02-09 14:18] LABS: INR 1.12 (0.9-1.15); Partial Thromboplastin Time 28.9 sec (23.0-31.2)
[2021-02-09 14:32] LABS: Alanine Aminotransferase 81 U/L (13-56); Alkaline Phosphatase 129 U/L (45-117); Bilirubin, Total 0.8 mg/dL (0.2-1.0); Total Protein 7.1 g/dL (6.4-8.2)
[2021-02-09] MEDS ORDERED: ENALAPRILAT 1.25 MG/ML-1ML VIAL IV ONE (15:45)
[2021-02-09] MEDS ORDERED: NITROGLYCERIN 0.4 MG SL TAB SL PRN (15:45)
[2021-02-09] MEDS ORDERED: MORPHINE SULF INJ 2 MG/ML SYRINGE 1ML IV PRN (15:45)
[2021-02-09] MEDS ORDERED: PROMETHAZINE HCL 25 MG/ML 1ML IV PRN (16:00)
[2021-02-09] MEDS ORDERED: LACTULOSE 20Gm/30ML SOLN PO PRN (16:00)
[2021-02-09] MEDS ORDERED: ACETAMINOPHEN 500 MG TAB PO PRN (16:00)
[2021-02-09] MEDS ORDERED: ALBUTEROL SULF 2.5 MG/0.5ML(0.5%) NEB SOLN NEB PRN (16:00)
[2021-02-09] MEDS ORDERED: DEXTROSE (50%) 50ML SYRG IV PRN (16:00)
[2021-02-09] MEDS ORDERED: levoFLOXacin 500MG 100 ML IV ONE (16:00)
[2021-02-09] MEDS ORDERED: TEMAZEPAM 15 MG CAP PO PRN (16:00)
[2021-02-09] MEDS ORDERED: traMADol HCL 50 MG TAB PO PRN (16:00)
[2021-02-09] MEDS ORDERED: FUROSEMIDE 40 MG/4 ML VIAL IV ONE (16:00)
[2021-02-09] MEDS: ACCU-CHEK COMFORT CURVE STRIP VI SCH ×2 (16:37→22:47)
[2021-02-09 17:07] LABS: Urine WBC None Seen /hpf (0 - 5)
[2021-02-09] MEDS: NITROGLYCERIN 50MG/250ML 250 ML IV SCH (17:07)
[2021-02-09 17:30] LABS: Urine Bacteria NONE SEEN /hpf (None Seen); Urine Blood 1+ /uL (Negative); Urine Hyaline Cast FEW /lpf (0 - 2); Urine Specific Gravity 1.014 (1.001-1.035)
[2021-02-09 18:05] VITALS: BP 189/98
[2021-02-09] MEDS: ALBUTEROL SULF 2.5 MG/0.5ML(0.5%) NEB SOLN NEB SCH ×2 (18:29→23:10)
[2021-02-09] MEDS: IPRATROPIUM BROM 0.5 MG/2.5ML INH SOL NEB SCH ×2 (18:29→23:10)
[2021-02-09] MEDS ORDERED: CARVEDILOL 3.125 MG TAB PO SCH (22:00)
[2021-02-09] MEDS: ATORVASTATIN 20 MG TAB PO SCH (22:47)
[2021-02-09] MEDS: SODIUM CHLOR 0.9% PF (SALINE LOCK) 10ML VIAL/SYR IV SCH (22:48)
[2021-02-09] MEDS: FAMOTIDINE 20 MG TAB PO SCH (22:49)
[2021-02-10] MEDS ORDERED: HYDR-4296 PO (02:08)
[2021-02-10] MEDS: IPRATROPIUM BROM 0.5 MG/2.5ML INH SOL NEB SCH ×3 (06:12→20:24)
[2021-02-10] MEDS: ALBUTEROL SULF 2.5 MG/0.5ML(0.5%) NEB SOLN NEB SCH ×3 (06:12→20:25)
[2021-02-10] MEDS: SODIUM CHLOR 0.9% PF (SALINE LOCK) 10ML VIAL/SYR IV SCH ×3 (06:23→22:22)
[2021-02-10] MEDS: ACCU-CHEK COMFORT CURVE STRIP VI SCH ×3 (06:24→17:00)
[2021-02-10] MEDS: FUROSEMIDE 40 MG/4 ML VIAL IV SCH ×2 (06:24→18:01)
[2021-02-10 08:21] LABS: Basophils # (auto) 0 10 ^3/uL (0-0.2); Basophils % (auto) 0.4 % (0.0-2.0); Eosinophils # (auto) 0.2 10 ^3/uL (0-0.8); Eosinophils % (auto) 2.2 % (0.0-7.0); Hematocrit 37.7 % (36.0-46.0); Lymphocytes % (auto) 10.1 % (10.0-50.0); Mean Corpuscular Hemoglobin 29.6 pg (28.0-32.0); Mean Corpuscular Hgb Conc. 31.9 g/dL (32.0-36.0); Mean Corpuscular Volume 92.8 fL (80.0-100.0); Monocytes # (auto) 0.6 10 ^3/uL (0-1.3); Monocytes % (auto) 5.9 % (0.0-12.0); Neutrophils # (auto) 7.8 10 ^3/uL (1.6-8.6); Neutrophils % (auto) 81.4 % (37.0-80.0); Nucleated Red Blood Cells % 0.6 %; Platelet Count (auto) 291 10^3/uL (140-450); Red Blood Cells 4.07 10^6/uL (4.0-5.20); Red Cell Distribution Width 16.8 % (11.8-14.3); White Blood Cell 9.5 10^3/uL (4.4-10.8)
[2021-02-10 08:47] LABS: Albumin 3.4 g/dL (3.4-5.0); Anion Gap 3 (5-15); Blood Urea Nitrogen 21 mg/dL (7-18); Carbon Dioxide 33 mmol/L (21-32); Chloride 106 mmol/L (98-107); Glucose 102 mg/dL (74-106); Sodium 142 mmol/L (136-145)
[2021-02-10 08:53] LABS: Alanine Aminotransferase 65 U/L (13-56); Alkaline Phosphatase 120 U/L (45-117); Aspartate Aminotransferase 27 U/L (15-37); BUN/Creatinine Ratio 13.2; Cholesterol 152 mg/dL (< 200); GFR African American 42 mL/min; GFR Non-African American 35 mL/min; HDL Cholesterol 69 mg/dL (40-59); LDL Cholesterol 72 mg/dL (< 100); Total Protein 6.8 g/dL (6.4-8.2); Triglycerides 56 mg/dL (< 150)
[2021-02-10] MEDS: POTASSIUM CHL 20 Meq TABLET PO SCH (10:00)
[2021-02-10] MEDS: ASPirin 81 mg TAB PO SCH (10:00)
[2021-02-10] MEDS: ENOXAPARIN SOD 40 MG/0.4 ML SYRINGE SC SCH (10:00)
[2021-02-10] MEDS ORDERED: ENALAPRIL MALEATE 2.5 MG TAB PO SCH (10:00)
[2021-02-10] MEDS: levoFLOXacin 500MG 100 ML IV SCH (10:00)
[2021-02-10] MEDS: ENALAPRIL MALEATE 10 MG TAB PO SCH ×2 (10:50→22:00)
[2021-02-10] MEDS: CARVEDILOL 3.125 MG TAB PO SCH ×2 (10:57→22:21)
[2021-02-10] MEDS: amLODIPine BESYLATE 5 MG TAB PO SCH (11:16)
[2021-02-10] MEDS: hydrALAZINE HCL 25 MG TAB PO SCH ×2 (11:16→21:30)
[2021-02-10] MEDS ORDERED: FUROSEMIDE 100 MG/10ML VIAL IV ONE (11:45)
[2021-02-10] MEDS: NITROGLYCERIN 50MG/250ML 250 ML IV SCH ×4 (16:31→23:43)
[2021-02-10] MEDS: FAMOTIDINE 20 MG TAB PO SCH (22:21)
[2021-02-10] MEDS: ATORVASTATIN 20 MG TAB PO SCH (22:21)
[2021-02-11] MEDS: NITROGLYCERIN 50MG/250ML 250 ML IV SCH ×5 (00:02→06:58)
[2021-02-11] MEDS: ALBUTEROL SULF 2.5 MG/0.5ML(0.5%) NEB SOLN NEB SCH ×4 (00:20→18:17)
[2021-02-11] MEDS: IPRATROPIUM BROM 0.5 MG/2.5ML INH SOL NEB SCH ×4 (00:20→18:17)
[2021-02-11 05:47] LABS: Urine Bacteria FEW /hpf (None Seen); Urine Blood 2+ /uL (Negative); Urine Specific Gravity 1.009 (1.001-1.035); Urine WBC 6 /hpf (0 - 5)
[2021-02-11] MEDS: SODIUM CHLOR 0.9% PF (SALINE LOCK) 10ML VIAL/SYR IV SCH ×3 (06:00→23:02)
[2021-02-11] MEDS: FUROSEMIDE 40 MG/4 ML VIAL IV SCH ×2 (06:37→17:38)
[2021-02-11 08:06] LABS: Basophils # (auto) 0.1 10 ^3/uL (0-0.2); Basophils % (auto) 0.6 % (0.0-2.0); Eosinophils # (auto) 0.3 10 ^3/uL (0-0.8); Eosinophils % (auto) 3.6 % (0.0-7.0); Hematocrit 39.5 % (36.0-46.0); Hemoglobin 12.5 g/dL (12.2-16.2); Lymphocytes # (auto) 1.1 10 ^3/uL (0.4-5.4); Lymphocytes % (auto) 12.5 % (10.0-50.0); Mean Corpuscular Hemoglobin 29.3 pg (28.0-32.0); Mean Corpuscular Hgb Conc. 31.7 g/dL (32.0-36.0); Mean Corpuscular Volume 92.5 fL (80.0-100.0); Monocytes # (auto) 0.6 10 ^3/uL (0-1.3); Monocytes % (auto) 7.3 % (0.0-12.0); Neutrophils # (auto) 6.7 10 ^3/uL (1.6-8.6); Nucleated Red Blood Cells % 0.3 %; Platelet Count (auto) 267 10^3/uL (140-450); Red Blood Cells 4.27 10^6/uL (4.0-5.20); Red Cell Distribution Width 15.9 % (11.8-14.3); White Blood Cell 8.8 10^3/uL (4.4-10.8)
[2021-02-11 08:22] LABS: INR 1.18 (0.9-1.15); Partial Thromboplastin Time 30.6 sec (23.0-31.2)
[2021-02-11 08:24] LABS: Blood Urea Nitrogen 19 mg/dL (7-18); Calcium 7.9 mg/dL (8.5-10.1); Chloride 98 mmol/L (98-107); Potassium 3.5 mmol/L (3.5-5.1); Sodium 140 mmol/L (136-145)
[2021-02-11 08:30] LABS: Alanine Aminotransferase 50 U/L (13-56); Albumin 3.1 g/dL (3.4-5.0); Alkaline Phosphatase 107 U/L (45-117); Anion Gap 4 (5-15); Aspartate Aminotransferase 17 U/L (15-37); BUN/Creatinine Ratio 12.8; Bilirubin, Total 1.2 mg/dL (0.2-1.0); Carbon Dioxide 38 mmol/L (21-32); Cholesterol 142 mg/dL (< 200); GFR African American 46 mL/min; GFR Non-African American 38 mL/min; Glucose 85 mg/dL (74-106); HDL Cholesterol 67 mg/dL (40-59); LDL Cholesterol 67 mg/dL (< 100); Magnesium 2.2 mg/dL (1.6-2.6); Phosphorus 3.1 mg/dL (2.5-4.90); Total Protein 6.4 g/dL (6.4-8.2); Triglycerides 61 mg/dL (< 150)
[2021-02-11] MEDS: levoFLOXacin 500MG 100 ML IV SCH (08:59)
[2021-02-11] MEDS: ASPirin 81 mg TAB PO SCH (08:59)
[2021-02-11] MEDS: hydrALAZINE HCL 25 MG TAB PO SCH ×2 (08:59→23:02)
[2021-02-11] MEDS: CARVEDILOL 3.125 MG TAB PO SCH ×2 (09:00→23:03)
[2021-02-11] MEDS: ENALAPRIL MALEATE 10 MG TAB PO SCH ×2 (09:01→23:03)
[2021-02-11] MEDS: POTASSIUM CHL 20 Meq TABLET PO SCH (09:01)
[2021-02-11] MEDS: ENOXAPARIN SOD 40 MG/0.4 ML SYRINGE SC SCH (09:03)
[2021-02-11] MEDS: amLODIPine BESYLATE 5 MG TAB PO SCH (09:04)
[2021-02-11 13:09] LABS: Hepatitis A Ab IgM Negative; Hepatitis B Core IgM Negative; Hepatitis B Surface Antigen Negative (Negative); Hepatitis C Antibody Negative (Negative)
[2021-02-11] MEDS ORDERED: ASPI325T4 PO (16:28)
[2021-02-11] MEDS ORDERED: POTA10TA51 PO (16:28)
[2021-02-11] MEDS ORDERED: CLOP75TA70 PO (16:28)
[2021-02-11] MEDS ORDERED: MET25T PO (16:30)
[2021-02-11] MEDS ORDERED: ALBU0.084 NEB (16:30)
[2021-02-11 17:00] VITALS: BP 121/63
[2021-02-11 22:01] VITALS: BP 127/44
[2021-02-11] MEDS: FAMOTIDINE 20 MG TAB PO SCH (23:03)
[2021-02-11] MEDS: ATORVASTATIN 20 MG TAB PO SCH (23:03)
[2021-02-12 04:46] VITALS: BP 125/53
[2021-02-12] MEDS: FUROSEMIDE 40 MG/4 ML VIAL IV SCH (06:13)
[2021-02-12] MEDS: SODIUM CHLOR 0.9% PF (SALINE LOCK) 10ML VIAL/SYR IV SCH ×2 (06:14→14:02)
[2021-02-12 06:44] LABS: INR 1.18 (0.9-1.15)
[2021-02-12] MEDS: IPRATROPIUM BROM 0.5 MG/2.5ML INH SOL NEB SCH ×3 (06:48→12:30)
[2021-02-12] MEDS: ALBUTEROL SULF 2.5 MG/0.5ML(0.5%) NEB SOLN NEB SCH ×3 (06:49→12:30)
[2021-02-12 06:50] LABS: Potassium 3.5 mmol/L (3.5-5.1)
[2021-02-12 06:56] LABS: BUN/Creatinine Ratio 18.2; Bilirubin, Total 1.9 mg/dL (0.2-1.0); Calcium 8.3 mg/dL (8.5-10.1)
[2021-02-12 09:00] VITALS: BP 152/68
[2021-02-12] MEDS: ASPirin 81 mg TAB PO SCH (09:16)
[2021-02-12] MEDS: CARVEDILOL 3.125 MG TAB PO SCH (09:17)
[2021-02-12] MEDS: POTASSIUM CHL 20 Meq TABLET PO SCH (09:17)
[2021-02-12] MEDS: hydrALAZINE HCL 25 MG TAB PO SCH (09:17)
[2021-02-12] MEDS: ENALAPRIL MALEATE 10 MG TAB PO SCH (09:18)
[2021-02-12] MEDS: ENOXAPARIN SOD 40 MG/0.4 ML SYRINGE SC SCH (09:18)
[2021-02-12] MEDS: amLODIPine BESYLATE 5 MG TAB PO SCH (09:18)
[2021-02-12] MEDS ORDERED: ASPI-231 PO (10:55)
[2021-02-12 13:00] VITALS: BP 112/50
[2021-02-12] MEDS ORDERED: HYDR25TA87 PO (13:10)
[2021-02-12] MEDS ORDERED: CHOL500023 PO (13:10)
[2021-02-12] MEDS ORDERED: AML5T PO (13:10)
[2021-02-12] MEDS ORDERED: ERGOCALCIFEROL 50,000 UNIT(1.25MG) CAP PO ONE (13:15)
[2021-02-12 17:00] VITALS: BP 134/71
[2021-02-12] MEDS ORDERED: FUROSEMIDE 40 MG TAB PO SCH (18:00)
== END 2021-02-12 17:15 | disposition home or self-care (01) | DRG 291 ==
LOC: ER 12:57 → TELE 15:34 → TELE-EAST 02-11 15:33
PROVIDERS: ADMIT Internal Medicine; ATTEND Internal Medicine
DX: I13.0 Hypertensive heart and chronic kidney disease with heart failure and stage 1 through stage 4 chronic kidney disease, or unspecified chronic kidney disease (principal); I50.43 Acute on chronic combined systolic (congestive) and diastolic (congestive) heart failure; J96.01 Acute respiratory failure with hypoxia; J44.1 Chronic obstructive pulmonary disease with (acute) exacerbation; N17.9 Acute kidney failure, unspecified; J91.8 Pleural effusion in other conditions classified elsewhere; I16.0 Hypertensive urgency; E66.9 Obesity, unspecified; I25.10 Atherosclerotic heart disease of native coronary artery without angina pectoris; N63.0 Unspecified lump in unspecified breast; Z20.822 Contact with and (suspected) exposure to COVID-19; I48.91 Unspecified atrial fibrillation; R73.9 Hyperglycemia, unspecified; N18.32 Chronic kidney disease, stage 3b; Z68.31 Body mass index [BMI] 31.0-31.9, adult; E55.9 Vitamin D deficiency, unspecified; E78.5 Hyperlipidemia, unspecified; F17.210 Nicotine dependence, cigarettes, uncomplicated; I25.2 Old myocardial infarction; Z82.49 Family history of ischemic heart disease and other diseases of the circulatory system; Z83.3 Family history of diabetes mellitus; Z95.0 Presence of cardiac pacemaker; Z98.61 Coronary angioplasty status; Z71.6 Tobacco abuse counseling
CPT/HCPCS: 36415; 36600; 71045; 71250; 76642; 80048; 80053; 80061; 80074; 81001; 82247; 82306; 82550; 82805; 82962; 83036; 83735; 83880; 84100; 84443; 84484; 85025; 85379; 85610; 85730; 86141; 87070; 87205; 87426; 93005; 93306; 93970; 94640; G0378; J1956